=== PATIENT | female | born 1950 | race African-American/Black ===

== ENCOUNTER 2018-03-09 16:06 | Emergency (ER) | payer MEDICAID ==
[~2018-03-09] VITALS: Ht 162.6 cm; Wt 65.0 kg
[2018-03-09] MEDS ORDERED: LISI2.5T47 PO (16:11)
[2018-03-09] MEDS ORDERED: ACETAMINOPHEN WITH CODEINE 300/30MG TABLET PO ONE (17:00)
[2018-03-09 18:02] VITALS: BP 146/97
== END 2018-03-09 18:45 | disposition home or self-care (01) ==
LOC: ER 16:47
DX: S30.0XXA Contusion of lower back and pelvis, initial encounter (principal); W01.0XXA Fall on same level from slipping, tripping and stumbling without subsequent striking against object, initial encounter; Y93.89 Activity, other specified; Y92.9 Unspecified place or not applicable; I10 Essential (primary) hypertension
CPT/HCPCS: 72100; 72170; 99284